=== PATIENT | female | born 1980 | race Asian ===

== ENCOUNTER 2020-02-29 21:34 | Emergency (ER) | payer BC, OTHER ==
[~2020-02-29] VITALS: Ht 162.6 cm; Wt 51.9 kg
--- NOTE | 2020-02-29 22:27 | NUR ---
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
[2020-02-29 23:28] LABS: ALBUMIN 3.4 g/dL (3.4-5.0); ANION GAP 5 mmol/L (5-15); CALCIUM 8.9 mg/dL (8.5-10.1); CHLORIDE 103 mmol/L (98-107); CREATININE 0.77 mg/dL (0.55-1.02)
[2020-02-29 23:47] LABS: BASOPHILS % (AUTO) 0 % (0-1); EOSINOPHILS % (AUTO) 0 % (1-7); LYMPHOCYTES % (AUTO) 32 % (22-44); MEAN CORPUSCULAR HGB CONC 31.7 g/dL (32.4-35.8); MEAN PLATELET VOLUME 8.7 fL (7.4-10.4); MONOCYTES % (AUTO) 9 % (2-9); NEUTROPHILS % (AUTO) 59 % (42-75); PLATELET COUNT 177 x10^3/uL (130-400); RED BLOOD COUNT 4.98 x10^6/uL (3.82-5.3); RED CELL DISTRIBUTION WIDTH 14.1 % (9.6-15.2)
[2020-02-29 23:57] LABS: MD NO
[2020-03-01] MEDS ORDERED: OMNIPAQUE 350 MG/ML, 100ML BOTTLE ONE (00:05)
[2020-03-01] MEDS ORDERED: CEFTRIAXONE PMX 1GM/50ML 50 ML ONE (00:53)
[2020-03-01] MEDS ORDERED: KETOROLAC 30 MG/1 ML ONE (00:53)
[2020-03-01] MEDS ORDERED: DEXAMETHASONE 4 MG/ML, 1ML IVPush ONE (01:00)
[2020-03-01] MEDS ORDERED: AZITHROMYCIN 500 MG in SODIUM CHLORIDE 0.9% 250 ML IV ONE (01:00)
[2020-03-01] MEDS ORDERED: CEFTRIAXONE PMX 1GM/50ML 50 ML IVPB ONE (01:00)
[2020-03-01] MEDS ORDERED: KETOROLAC 30 MG/1 ML IVPush ONE (01:00)
--- NOTE | 2020-03-01 01:09 | NUR ---
PT DESAT TO 89% WITH AMBULATION. QUICKLY RETURNED TO 93% ON RA WITH REST.
[2020-03-01] MEDS ORDERED: DEXAMETHASONE 4 MG/ML, 5ML ONE (01:12)
[2020-03-01] MEDS ORDERED: PLEASE ENTER ALLERGIES MC SCH (01:30)
[2020-03-01 03:15] VITALS: BP 104/70
--- NOTE | 2020-03-01 03:31 | NUR ---
PT VSS. PT AMBULATORY. PT VERBALIZES UNDERSTANDING OF DISCHARGE INSTRUCTIONS AND WHEN TO RETURN TO THE EMERGENCY ROOM.
== END 2020-03-01 03:32 | disposition home or self-care (01) ==
LOC: ED 03-01 03:00
DX: J12.9 Viral pneumonia, unspecified (principal); B34.9 Viral infection, unspecified; R94.31 Abnormal electrocardiogram [ECG] [EKG]; I31.3 Pericardial effusion (noninflammatory)
CPT/HCPCS: 36415; 71045; 71275; 80048; 82040; 85025; 87040; 93005; 96365; 96367; 96375; 99285; J0456; J0696; J1100; J1885; J7050; Q9967